=== PATIENT | male | born 1995 | race Hispanic/Latino ===

== ENCOUNTER 2018-03-31 08:54 | Emergency (ER) | payer OTHER ==
[2018-03-31 09:29] LABS: RAPID GROUP A STREP NEGATIVE (NEGATIVE)
[2018-03-31] MEDS ORDERED: IBUPROFEN 600 MG TABLET ONE (09:59)
[2018-03-31] MEDS ORDERED: AMOXICILLIN 500 MG CAPSULE PO ONE (10:00)
== END 2018-03-31 10:19 | disposition home or self-care (01) ==
LOC: EDH 08:54
DX: J02.9 Acute pharyngitis, unspecified (principal); R13.10 Dysphagia, unspecified
CPT/HCPCS: 87804; 87880